=== PATIENT | female | born 1990 | race Two or more races ===

== ENCOUNTER 2018-06-02 18:01 | Emergency (ER) | payer SELFPAY ==
[2018-06-02 18:13] VITALS: BP 144/84
[2018-06-02] MEDS ORDERED: DIPHENHYDRAMINE HCL 50 MG CAPSULE PO ONE (19:16)
[2018-06-02] MEDS ORDERED: PROCHLORPERAZINE MALEATE 10 MG TABLET PO ONE (19:16)
[2018-06-02] MEDS ORDERED: NAPROXEN 250 MG TABLET PO ONE (19:16)
[2018-06-02] MEDS ORDERED: ONDANSETRON 4 MG TAB.RAPDIS PO ONE (19:16)
--- NOTE | 2018-06-02 19:18 | ER Document Report ---
ED Medical Screen (RME) - General Chief Complaint: Headache Stated Complaint: HEADACHE Time Seen by Provider: 06/02/18 19:12 Notes: 28-year-old female patient comes emergency room complaining of headache since 2 PM today. She has a history of migraine headaches. There is some nausea associated with this. She initially saw black specks in her visual field that have now resolved. Headache is primarily in the right parietal region. She al so is complaining of some abdominal discomfort. The patient speaks Estonian and her malefriend interprets as he is quite fluent in Irish and Estonian. I have greeted and performed a rapid initial assessment of this patient. A comprehensive ED assessment and evaluation of the patient, analysis of test results and completion of the medical decision making process will be conducted by additional ED providers. - Related Data Allergies/Adverse Reactions: No Known Allergies Allergy (Unverified 06/02/18 18:03) Past Medical History - Social History Chew tobacco use (# tins/day): No Frequency of alcohol use: Social Drug Abuse: None Neurological Medical History: Reports: Hx Migraine Renal/ Medical History: Denies: Hx Peritoneal Dialysis Past Surgical History: Reports: Hx Oral Surgery - wisdow, Hx Tonsillectomy Physical Exam - Vital signs Vitals: Temp Pulse Resp BP Pulse Ox 98.1 F 87 16 144/84 H 100 06/02/18 18:11 06/02/18 18:11 06/02/18 18:11 06/02/18 18:11 06/02/18 18:11 Course - Vital Signs Vital signs: Temp Pulse Resp BP Pulse Ox 98.1 F 87 16 144/84 H 100 06/02/18 18:11 06/02/18 18:11 06/02/18 18:11 06/02/18 18:11 06/02/18 18:11
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
== END 2018-06-02 21:19 | disposition home or self-care (01) ==
LOC: ER 18:01
DX: G43.901 Migraine, unspecified, not intractable, with status migrainosus (principal); R11.0 Nausea
CPT/HCPCS: 99283; S0119; S0183